=== PATIENT | female | born 1960 | race African-American/Black ===

== ENCOUNTER 2018-11-29 19:58 | Emergency (ER) | payer OTHER ==
[~2018-11-29] VITALS: Ht 170.2 cm; Wt 99.8 kg
[2018-11-29 20:09] VITALS: BP 161/50
[2018-11-29] MEDS ORDERED: ACETAMINOPHEN/CODEINE#3 (300/30mg) TAB PO ONE (22:30)
== END 2018-11-30 00:24 | disposition home or self-care (01) ==
LOC: ER 20:06
DX: M25.552 Pain in left hip (principal); M25.551 Pain in right hip; R51 Headache; V43.52XA Car driver injured in collision with other type car in traffic accident, initial encounter; Y93.89 Activity, other specified; Y99.8 Other external cause status; Y92.410 Unspecified street and highway as the place of occurrence of the external cause
CPT/HCPCS: 72192